=== PATIENT | male | born 1940 | race Caucasian/White ===

== ENCOUNTER 2020-02-10 14:37 | Emergency (ER) | payer MEDICARE, SELFPAY ==
[2020-02-10 14:49] VITALS: BP 161/78; PULSE 58; RESP 22; TEMP 36.8; O2SAT 98; BMI 32.2
[2020-02-10 15:34] VITALS: BP 145/82; PULSE 112; RESP 20; O2SAT 95
--- NOTE | 2020-02-10 15:45 | PC.NURSE ---
PT ALERT AND ORIENTED, SKIN PWD, RESPIRATIONS EVEN AND UNLABORED, LS SLIGHTLY DIMINISHED. PT STATES THIS MORNING EATING BREAKFAST, THEN STARTED TO HAVE TO CLEAR HIS THROAT, AND SPIT OUT NOTICED SOME BLOOD IN HIS SPUTUM, DID FEEL SOB AT THAT TIME BUT NOT CURRENTLY. THEN WAS EATING A CANDY BAR, FELT LIKE IT GOT STUCK IN HIS THROAT-DID GET IT UP AND SPITTED IT OUT, SINCE THEN FEELS LIKE HIS THROAT IS SLIGHT IRRITATED AND FEELS LIKE HIS VOICED IS MUFFLED, PT DID REPORT ABLE TO DRINK SOME WATER WITHOUT ANY DIFFICULTY. SPEAKING IN FULL SENTENCES SATING AT 95% ON ROOM AIR, NS ON THE MONITOR
--- NOTE | 2020-02-10 16:37 | CT_ITS ---
EXAMINATION: CT SOFT TISSUE NECK WITH CONTRAST CLINICAL INFORMATION: Neck swelling and multiple voice COMPARISON: None TECHNIQUE: Following the intravenous administration of 60 mL of Omnipaque 350 intravenous contrast, helical imaging was performed in the axial plane with generation of coronal and sagittal reformatted images. This CT examination was performed using dose optimization techniques as appropriate, variously including the following: *Automated exposure control *Adjustment of mA and/or kV according to patient size (this includes techniques or standardized protocols for targeted exams where dose is matched to indication/reason for exam; i.e. extremities or head) *Use of iterative reconstruction technique DLP: 557 FINDINGS: There is abnormal masslike thickening of the bilateral aryepiglottic folds measuring 3.2 x 1.4 x 3.1 cm (TR x CC x SI). Fat planes surrounding the hypopharynx are intact. Retropharyngeal intact. Preepiglottic fat planes are intact. The pyriform sinuses are partially effaced. No evidence of extension of the process beyond the pharyngeal mucosal space. Deep spaces of the neck symmetric. No cervical adenopathy. The carotid sheath vasculature opacify normally. The thyroid gland is normal. The superior mediastinum is unremarkable. Mastoid air cells are clear. Small mucous retention cyst present within the left maxillary sinus. The mastoid air cells and visualized portions of the paranasal sinuses are well-aerated. The temporomandibular joints are normal. No periapical disease is identified. The imaged portions of the brain parenchyma are unremarkable. There is a 4 mm (mean) diameter nodule within the left upper lobe. Bulky bridging anterior osteophytes present throughout the cervical spine. No fractures or subluxations. 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 Endoscopy / biopsy recommended. * No lymphadenopathy. * There is a 4 mm nodule within left upper lobe. Attention on follow-up.
--- NOTE | 2020-02-10 16:37 | ECG_ITS ---
Test Reason : DIFFICULTY BREATHING Blood Pressure : / mmHG Vent. Rate : 078 BPM Atrial Rate : 078 BPM P-R Int : 148 ms QRS Dur : 082 ms QT Int : 410 ms P-R-T Axes : 039 -06 046 degrees QTc Int : 467 ms Normal sinus rhythm Normal ECG No previous ECGs available Referred By: Eli Gomez Electronically Signed By:PABLO HOANG MD
--- NOTE | 2020-02-10 16:38 | XR_ITS ---
EXAMINATION: XR CHEST CLINICAL INFORMATION: Shortness of breath COMPARISON: None TECHNIQUE: 2 views of the chest were obtained. FINDINGS: Mild diffuse interstitial prominence which appears chronic. No edema, consolidation, or effusion. The lungs are slightly hyperinflated. Normal cardiomediastinal silhouette. IMPRESSION: No acute cardiopulmonary findings.
--- NOTE | 2020-02-10 16:40 | ED_ITS ---
HPI - URI/Sore Throat General Chief Complaint: Upper Respiratory Symptoms Stated Complaint: MULTIPLE COMPLAINTS Time Seen by Provider: 02/10/20 16:28 Source: patient Mode of arrival: ambulatory History of Present Illness HPI Narrative: 79-year-old male presenting to the ED with sudden onset throat fullness x this morning after eating full breakfast. Admits to coughing up a little dark blood. Reports daily clears throat, however today felt like throat was swollen/ something was stuck and could not clear throat. denies sore throat, fever, trauma, shortness of breath, difficulty breathing, inability to handle secretions. Reports has been tolerating p.o. at home without difficulty MD elicited complaint: cough and sore throat Onset (ago): hour(s) Consistency: constant Severity: moderate Related Data Allergies Allergy/AdvReac Type Severity Reaction Status Date / Time No Known Allergies Allergy Verified 02/10/20 14:48 Review of Systems Review of Systems: Constitutional: No Fever, No Chills ENT/Mouth: No Nasal Congestion, No Sinus Pain, + Hoarseness, No sore throat, No Rhinorrhea, + Swallowing Difficulty Eyes: No Eye Pain, No Swelling, No Redness Cardiovascular: No Chest Pain, No SOB, No Dyspnea on Exertion Respiratory: + Cough, No Sputum, No Wheezing, No SOB, +hemoptysis Gastrointestinal: No Nausea, No Vomiting, No Diarrhea Skin: No Skin Lesions, No rash Yes all other systems are reviewed and are negative [facility] Social History Social History Alcohol intake: current Alcohol intake frequency: a few times a week Alcohol type: beer Smoking Status: Never smoker Use of substances other than those prescribed or required for medical reasons: No Advance Directives: No Advance Directives Information Provided: Yes Physical Exam Vital Signs: Vital Signs: Vital Signs Temp Pulse Resp BP Pulse Ox 02/10/20 19:43 97.9 F 77 14 155/75 H 94 02/10/20 18:40 98.1 F 75 20 150/62 H 97 02/10/20 15:34 112 H 20 145/82 H 95 02/10/20 14:49 98.3 F 58 22 H 161/78 H 98 Body Mass Index 32.2 Const: General: cooperative and healthy appearing; No acute distress Orientation/consciousness: patient oriented x3 Limitations: no limitations HENMT: Head: Yes normal to inspection Ears: hearing grossly normal bilaterally General nose exam: Normal external nose present Face and sinus: Yes normal facial exam Mouth: Normal oral and palatal mucosa present, no drooling and muffled voice Throat: Yes posterior oropharynx normal, Yes tonsils normal and Yes uvula midline Eyes: General: appearance normal, both eyes and all related structures EOM: EOMs intact bilaterally Neck: Other: neck fullness appreciated Lymphatic: no lymphadenopathy noted Resp: Effort & Inspection: normal respiratory effort, no grunting, not labored, no nasal flaring and no stridor Auscultation: clear to auscultation bilaterally, no crackles, no rales, no rhonchi and no wheezes Cardio: Rate: regular rate Heart sounds: S1 normal heart sound present and S2 normal heart sound present GI: Inspection: Yes normal to inspection Palpation (GI): Soft to palpation Skin: Wounds: no wounds Neuro: General: patient oriented x3 Extrem: General: Yes normal to inspection Course Course Course Narrative: - no leukocytosis, labs otherwise unremarkable, CXR without acute findings -- CT showing heterogeneous mass involving the area glottic folds bilaterally concerning for neoplasm. >> Spoke to ENT doctor Robles at [facility], case discussed, patient can follow-up in their office [place]. Patient given printed report and disc of CT to bring to office lab and imaging results discussed with patient. Discussed possible malignancy , and need for urgent follow-up with ENT. Worrisome signs and symptoms and very strict return precautions including difficulty breathing, throat swelling, inability to eat or drink, drooling, fever, etc discussed with patient, he verbalized understanding of feel safe for discharge MDM - URI/Sore Throat MDM Narrative Medical decision making narrative: 79-year-old male presenting to the ED with sudden onset throat fullness x this morning after eating full breakfast. On exam VSS, nontoxic appearing, uvula midline +muffled voice, in no respiratory di stress, lungs CTA, no stridor. Concern for ?epiglottis/laryngeal infection vs mass vs bronchitis vs viral syndrome plan: EKG, labs, CXR, CT soft tissue neck Differential Diagnosis Differential diagnosis: Likely upper respiratory infection, viral infection, bronchitis and pharyngitis Lab Data Result diagrams: 02/10/20 17:23 02/10/20 17:23 Labs: Lab Results 10/10/20 10/10/20 10/10/20 Range/Units 17:23 17:23 17:23 WBC 5.6 (4.8-10.8) X10*3/uL RBC 4.11 L (4.60-5.80) X10*6/uL Hgb 13.6 L (14.0-18.0) g/dl Hct 41.5 L (42-52) % MCV 101.0 H (80-98) fL MCH 33.1 H (27.0-33.0) pg MCHC 32.8 (31.0-36.0) g/dl RDW 12.7 (11.0-16.0) % Plt Count 194 (160-400) X10*3/uL MPV 9.6 (9.4-12.4) fL Immature Gran % (Auto) 0.2 (0.0-0.4) % Neut % (Auto) 68.5 (45-73) % Lymph % (Auto) 20.7 (20-40) % [place] % (Auto) 9.0 (2-11) % Eos % (Auto) 1.2 (0-4) % Baso % (Auto) 0.4 (0-2) % Lymph # (Auto) 1.2 (1.2-4.9) X10*3/uL [place] # (Auto) 0.5 (0.1-1.2) X10*3/uL Eos # (Auto) 0.1 (0.0-0.4) X10*3/uL Baso # (Auto) 0.0 (0.0-0.2) X10*3/uL Abs Immat Gran (auto) 0.01 (0.00-0.03) X10*3/uL Absolute Neuts (auto) 3.9 (2.0-8.3) X10*3/uL Absolute Nucleated RBC 0.000 (0.0-0.012) X10*3/uL Nucleated RBC % (auto) 0.0 (0.0-0.2) /100WBC PT 11.5 (10.8-13.0) SEC INR 1.0 (0.9-1.1) APTT 33.7 (24.1-38.0) SEC Sodium 140 (135-145) mmol/L Potassium 3.8 (3.3-5.1) mmol/l Chloride 103 (96-108) mmol/L Carbon Dioxide 31 H (22-29) mmol/L Anion Gap 10 L (12-20) BUN 15 (9-16) mg/dL Creatinine 0.80 (0.5-1.4) mg/dL Estim Creat Clear Calc 81.4 Estimated GFR > 60 Random Glucose 105 (60-115) mg/dL Calcium 9.4 (8.4-10.2) mg/dL Total Bilirubin 1.1 H (0.0-1.0) mg/dL Direct Bilirubin 0.4 (0.0-0.5) mg/dL AST 15 (5-37) U/L ALT 8 (0-40) U/L Alkaline Phosphatase 70 (39-117) U/L Troponin I High Sens (<3.5-35.0) ng/L B-Natriuretic Peptide (<100) pg/mL Total Protein 6.7 (6.5-8.0) g/dL Albumin 4.1 (3.5-5.0) g/dL 02/10/20 Range/Units 17:23 WBC (4.8-10.8) X10*3/uL RBC (4.60-5.80) X10*6/uL Hgb (14.0-18.0) g/dl Hct (42-52) % MCV (80-98) fL MCH (27.0-33.0) pg MCHC (31.0-36.0) g/dl RDW (11.0-16.0) % Plt Count (160-400) X10*3/uL MPV (9.4-12.4) fL Immature Gran % (Auto) (0.0-0.4) % Neut % (Auto) (45-73) % Lymph % (Auto) (20-40) % [place] % (Auto) (2-11) % Eos % (Auto) (0-4) % Baso % (Auto) (0-2) % Lymph # (Auto) (1.2-4.9) X10*3/uL [place] # (Auto) (0.1-1.2) X10*3/uL Eos # (Auto) (0.0-0.4) X10*3/uL Baso # (Auto) (0.0-0.2) X10*3/uL Abs Immat Gran (auto) (0.00-0.03) X10*3/uL Absolute Neuts (auto) (2.0-8.3) X10*3/uL Absolute Nucleated RBC (0.0-0.012) X10*3/uL Nucleated RBC % (auto) (0.0-0.2) /100WBC PT (10.8-13.0) SEC INR (0.9-1.1) APTT (24.1-38.0) SEC Sodium (135-145) mmol/L Potassium (3.3-5.1) mmol/l Chloride (96-108) mmol/L Carbon Dioxide (22-29) mmol/L Anion Gap (12-20) BUN (9-16) mg/dL Creatinine (0.5-1.4) mg/dL Estim Creat Clear Calc Estimated GFR Random Glucose (60-115) mg/dL Calcium (8.4-10.2) mg/dL Total Bilirubin (0.0-1.0) mg/dL Direct Bilirubin (0.0-0.5) mg/dL AST (5-37) U/L ALT (0-40) U/L Alkaline Phosphatase (39-117) U/L Troponin I High Sens 6.1 (<3.5-35.0) ng/L B-Natriuretic Peptide 55 (<100) pg/mL Total Protein (6.5-8.0) g/dL Albumin (3.5-5.0) g/dL Discharge Plan Discharge Clinical Impression: Mass in neck Patient Disposition: Home, Self-Care Instructions: Soft Tissue Mass (ED) Additional Instructions: your CT scan showed a mass near the entrance of your larynx. It is concerning for possible cancer, further studies need to be done outpatient. You need to follow-up with [facility] ENT as soon as possible Call the number listed on her paperwork IF HE DEVELOP ANY DIFFICULTY BREATHING, FEEL LIKE THE SWELLING IS WORSENING, ARE UNABLE TO EAT OR DRINK/ HANDLING HER SECRETIONS RETURN TO THE ED IMMEDIATELY. YOU SHOULD GO TO [facility] IF THIS HAPPENS Referrals: Ayanna Jackson MD [Physician] - 2 days Discharge Date/Time: 02/10/20 20:44
[2020-02-10] MEDS: Albuterol/Iprat 2.5/0.5MG 3 ML AMPUL.NEB INHALE (16:57)
[2020-02-10 17:28] LABS: MANUAL DIFF FLAG NO
[2020-02-10 17:32] LABS: Basophils Percent Auto 0.4 % (0-2); Eosinophils Absolute Auto 0.1 X10*3/uL (0.0-0.4); Eosinophils Percent Auto 1.2 % (0-4); Hematocrit 41.5 % (42-52); Hemoglobin 13.6 g/dl (14.0-18.0); Imm Gran Abs Auto 0.01 X10*3/uL (0.00-0.03); Imm Gran Pct Auto 0.2 % (0.0-0.4); Lymphocytes Absolute Auto 1.2 X10*3/uL (1.2-4.9); Lymphocytes Percent Auto 20.7 % (20-40); Mean Corpuscular HGB Conc 32.8 g/dl (31.0-36.0); Mean Corpuscular Hemoglobin 33.1 pg (27.0-33.0); Mean Platelet Volume 9.6 fL (9.4-12.4); Monocytes Absolute Auto 0.5 X10*3/uL (0.1-1.2); Neutrophils Absolute Auto 3.9 X10*3/uL (2.0-8.3); Neutrophils Percent Auto 68.5 % (45-73); Platelet Count 194 X10*3/uL (160-400); Red Blood Count 4.11 X10*6/uL (4.60-5.80); Red Cell Distribution Width 12.7 % (11.0-16.0); White Blood Count 5.6 X10*3/uL (4.8-10.8)
[2020-02-10 17:38] LABS: Prothrombin Time 11.5 SEC (10.8-13.0)
[2020-02-10 17:40] LABS: Partial Thromboplastin Time 33.7 SEC (24.1-38.0)
[2020-02-10 17:58] LABS: Alanine Aminotransferase 8 U/L (0-40); Albumin Level 4.1 g/dL (3.5-5.0); Alkaline Phosphatase 70 U/L (39-117); Anion Gap 10 (12-20); Aspartate Amino Transferase 15 U/L (5-37); Bilirubin Direct 0.4 mg/dL (0.0-0.5); Bilirubin Total 1.1 mg/dL (0.0-1.0); Blood Urea Nitrogen 15 mg/dL (9-16); Calcium 9.4 mg/dL (8.4-10.2); Carbon Dioxide 31 mmol/L (22-29); Chloride 103 mmol/L (96-108); Creatinine Clr Calc Pharmacy 81.4; Estimated Glomerular Filt Rate > 60; Glucose Random 105 mg/dL (60-115); Potassium 3.8 mmol/l (3.3-5.1); Sodium 140 mmol/L (135-145); Total Protein 6.7 g/dL (6.5-8.0)
[2020-02-10 18:03] LABS: B Type Natriuretic Peptide 55 pg/mL (<100); Troponin-I High Sensitivity 6.1 ng/L (<3.5-35.0)
[2020-02-10] MEDS: iohexoL 350 MG/ML 100 ML INFUS..BTL IV (18:26)
[2020-02-10 18:40] VITALS: BP 150/62; PULSE 75; RESP 20; TEMP 36.7; O2SAT 97
--- NOTE | 2020-02-10 19:18 | PC.NURSE ---
Report received from Monique FLORES, pt alert, speaking in full/clear sentences. Ambulated to CT with steady gait. Awaiting imaging results at this time.
[2020-02-10 19:43] VITALS: BP 155/75; PULSE 77; RESP 14; TEMP 36.6; O2SAT 94
--- NOTE | 2020-02-10 20:15 | PC.NURSE ---
Pt aware of scan results, provider requesting pt be fed to make sure he could swallow. Plan for pt to f/u with EENT/ oncology through [facility].
--- NOTE | 2020-02-10 20:17 | PC.NURSE ---
pt able to swallow with no difficulty at thsi time
== END 2020-02-10 20:44 | disposition home or self-care (01) ==
PROVIDERS: Physician Assistant; Emergency Provider Emergency Medicine Emergency Medical Services
DX: R22.1 Localized swelling, mass and lump, neck (principal); M54.2 Cervicalgia; Z20.828 Contact with and (suspected) exposure to other viral communicable diseases
CPT/HCPCS: 36415; 70491; 71046; 80048; 80076; 83880; 84484; 85025; 85610; 85730; 93005; 99285

== ENCOUNTER 2023-04-20 14:05 | Outpatient (AMB) | payer MEDICARE, SELFPAY ==
[2023-04-20 14:44] VITALS: BP 120/50; PULSE 76; O2SAT 99; BMI 26.4
--- NOTE | 2023-04-20 14:44 | A.OFFVIS_ITS ---
Intake Vital Signs 04/20/23 14:44 Height 5 ft 8.5 in Weight 176 lb 0.37 oz BMI 26.4 BP 120/50 L Blood Pressure Location Lt brachial Position Sitting Pulse 76 Pulse Source Pulse Oximeter Pulse Oximetry (%) 99 Oxygen Delivery Method Room Air Intake Visit Reasons: ILD Intake Note: pt is here as a new patient, had hip operation in October, and some discomfort, very slight breathing issues. 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 This the gentleman, is well educated and keeps the note book with him, to take notes. When I asked him a for what reason is he referred to be seen by pulmonary service. He said he does not have any particular symptoms, except for mild occasional cough. He denies any wheezing attacks. He denies any on usual shortness of breath for his age. However since he has had right hip operation, about 6 months ago, his gait is somewhat slower than before. At home he can climb 1 flight of stairs, and he can walk around in the house without shortness of breath. He has had no wheezing attacks. He does not have history of smoking. He does not have history of exposure to any industrial dust sprays fumes. He had a CT scan of the chest in January of this year, at [facility]. I have reviewed the report and it shows, sub pleural reticulation in the lower parts of the lungs on both sides, consistent with mild interstitial lung disease. This gentleman has had feeling of something in his throat, has been evaluated by CT scan of the neck, and he has osteophytes, impinging on the esophagus. [facility] Medical History (Updated 04/20/23 @ 15:44 by Margy Napier MD) Osteophyte of cervical spine Interstitial lung disease Social History Alcohol intake: current Alcohol intake frequency: a few times a week Alcohol type: beer Patient Tobacco Use Status: Never used Tobacco Review of Systems Const All systems reviewed & are unremarkable except as noted in HPI and below Eyes Reports no additional complaints ENT Reports no additional complaints Card Reports irregular heart rhythm (History of skipped beats) Resp Reports as per HPI GI Reports no additional complaints Reports no additional complaints Musc Reports no additional complaints Skin/Breast Reports system reviewed and no additional complaints, except as documented Neuro Reports no additional complaints Psych Reports no additional complaints Physical Exam Vital Signs: Last Vital Signs Pulse 76 04/20/23 14:44 BP 120/50 L 04/20/23 14:44 Pulse Ox 99 04/20/23 14:44 Oxygen Delivery Method Room Air 04/20/23 14:44 BMI result Body Mass Index 26.4 Const General: healthy appearing, comfortable, no acute distress, alert and awake Orientation/consciousness: patient oriented x3 HEENT Head: Yes normal to inspection General nose exam: No nasal polyps present and No nasal discharge present Face and sinus: Yes sinuses nontender Mouth: oropharynx normal Throat: Yes posterior oropharynx normal Eyes General: appearance normal, both eyes and all related structures Neck Neck: Yes normal visual inspection, Yes no lymphadenopathy, Yes trachea midline and Yes no JVD Thyroid: Thyroid normal Chest Chest palpation & inspection: normal inspection of the chest, normal palpation of entire chest wall and no tenderness Resp Other: Percussion note is resonant. Breath sounds. Are normal and equal on both sides However the breath sounds are diminished over the left and right base. No definite crepitations but the breath sounds are somewhat harsh in corrected over the basilar areas. No wheezes are heard. Cardio Palpation: normal PMI Rate: regular rate Rhythm: regular rhythm Heart sounds: no gallops and no murmurs Peripheral pulses: Peripheral pulses 2+ throughout GI Palpation (GI): Soft to palpation, nontender, No hepatosplenomegaly present and no masses Auscultation: normal bowel sounds Back/Spine/Pelvis Thoracic/Lumbar Spine: thoracic and lumbar spine normal to inspection Skin General skin exam: no rashes or lesions noted Neuro General: patient oriented x3 and no focal motor deficits Cranial nerves: Yes CN's II-XII intact bilaterally Extrem General: Yes normal to inspection, Yes no clubbing, cyanosis or edema and Yes no calf tenderness Psych Appearance: grossly normal and well kempt Speech and movement: Normal speech and movement present Assessment & Plan Assessment & Plan (1) Interstitial lung disease: Comment: CT scan of the chest, , in January 2023 at [facility], showed sub pleural reticulation and increased interstitial markings in the basilar areas, c/w possible chronic pulmonary fibrosis, The patient is essentially asymptomatic at this time. Code(s): J84.9 - Interstitial pulmonary disease, unspecified Plan: Discussed with him in detail. Advise that he should have pulmonary function test to make sure that there is no significant impairment. Because he is relatively asymptomatic there is no need of any treatment at this time. (2) Osteophyte of cervical spine: Comment: Patient has had a feeling of lump in the throat. The soft tissue CT scan has shown indentation of the pharynx, caused by osteophytes, of C2-C6. Code(s): M25.78 - Osteophyte, vertebrae Plan: The above finding was discussed with the patient, he does not have any difficulty. In swallowing Orders: Orders PFT pulmonary function test Today J84.9 - Interstitial pulmonary disease, unspecified Coding Level of Care Code Tele New Pt Level 3 (73732) Diagnoses Interstitial lung disease J84.9 Osteophyte of cervical spine M25.78
== END 2023-04-20 15:16 | disposition home or self-care (01) ==
PROVIDERS: PCP Family Medicine; Referring Provider Family Medicine; Visit Provider Internal Medicine
DX: J84.9 Interstitial pulmonary disease, unspecified (principal); M25.78 Osteophyte, vertebrae
CPT/HCPCS: 99203

== ENCOUNTER → 2023-04-20 14:05 | Outpatient (BNVA) | payer MEDICARE, SELFPAY | PROVIDERS: PCP Family Medicine; Referring Provider Family Medicine; Visit Provider Internal Medicine | DX: J84.9 Interstitial pulmonary disease, unspecified (principal); M25.78 Osteophyte, vertebrae | CPT/HCPCS: 99202 ==

== ENCOUNTER 2023-07-15 13:50 | Outpatient (AMB) | payer MEDICARE, SELFPAY ==
[2023-07-15 14:02] VITALS: BP 104/52; PULSE 67; O2SAT 96; BMI 26.2
--- NOTE | 2023-07-15 14:02 | A.OFFVIS_ITS ---
Intake Vital Signs 07/15/23 14:02 Height 5 ft 8.5 in Weight 175 lb BMI 26.2 BP 104/52 L Blood Pressure Location Lt brachial Position Sitting Pulse 67 Pulse Source Pulse Oximeter Pulse Oximetry (%) 96 Oxygen Delivery Method Room Air Intake Visit Reasons: ILD Intake Note: pt is here for follow up and states he is feeling good. 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 He had a CT scan of the chest in January of this year, at [facility]. I have reviewed the report and it showed, sub pleural reticulation in the lower parts of the lungs on both sides, consistent with mild interstitial lung disease/fibrosis This gentleman has had feeling of something in his throat, has been evaluated by CT scan of the neck, and he has osteophytes, impinging on the esophagus. He denies any history of aspirations. He was supposed to have a pulmonary function test for future reference, but somehow or other he missed appointment in June of this. He is still telling me that he has had pulmonary function test in the past at [facility] but that was probably more than 4-5 years ago. Anyway he denies having any cough wheezing or shortness of breath. He also denies having any chest pain. His physical activity is normal he can walk outdoors on limited without getting short of breath. [facility] Medical History Osteophyte of cervical spine Interstitial lung disease Social History Alcohol intake: current Alcohol intake frequency: a few times a week Alcohol type: beer Patient Tobacco Use Status: Never used Tobacco Review of Systems Const All systems reviewed & are unremarkable except as noted in HPI and below Eyes Reports no additional complaints ENT Reports no additional complaints Card Reports irregular heart rhythm (History of skipped beats) Resp Reports as per HPI GI Reports no additional complaints Reports no additional complaints Musc Reports no additional complaints Skin/Breast Reports system reviewed and no additional complaints, except as documented Neuro Reports no additional complaints Psych Reports no additional complaints Physical Exam Vital Signs: Last Vital Signs Pulse 67 07/15/23 14:02 BP 104/52 L 07/15/23 14:02 Pulse Ox 96 07/15/23 14:02 Oxygen Delivery Method Room Air 07/15/23 14:02 BMI result Body Mass Index 26.2 Const General: healthy appearing, comfortable, no acute distress, alert and awake Orientation/consciousness: patient oriented x3 HEENT Head: Yes normal to inspection General nose exam: No nasal polyps present and No nasal discharge present Face and sinus: Yes sinuses nontender Mouth: oropharynx normal Throat: Yes posterior oropharynx normal Eyes General: appearance normal, both eyes and all related structures Neck Neck: Yes normal visual inspection, Yes no lymphadenopathy, Yes trachea midline and Yes no JVD Thyroid: Thyroid normal Chest Chest palpation & inspection: normal inspection of the chest, normal palpation of entire chest wall and no tenderness Resp Other: Percussion note is resonant. Breath sounds are normal and equal on both sides However the breath sounds are diminished over the left and right base. No definite crepitations . No wheezes are heard. Cardio Palpation: normal PMI Rate: regular rate Rhythm: regular rhythm Heart sounds: no gallops and no murmurs Peripheral pulses: Peripheral pulses 2+ throughout GI Palpation (GI): Soft to palpation, nontender, No hepatosplenomegaly present and no masses Auscultation: normal bowel sounds Back/Spine/Pelvis Thoracic/Lumbar Spine: thoracic and lumbar spine normal to inspection Skin General skin exam: no rashes or lesions noted Neuro General: patient oriented x3 and no focal motor deficits Cranial nerves: Yes CN's II-XII intact bilaterally Extrem General: Yes normal to inspection, Yes no clubbing, cyanosis or edema and Yes no calf tenderness Psych Appearance: grossly normal and well kempt Speech and movement: Normal speech and movement present Assessment & Plan Assessment & Plan (1) Interstitial lung disease: Comment: CT scan of the chest, , in January 2023 at [facility], showed sub pleural reticulation and increased interstitial markings in the basilar areas, c/w possible chronic pulmonary fibrosis, The patient is essentially asymptomatic . Code(s): J84.9 - Interstitial pulmonary disease, unspecified Plan: There was some confusion and he did not undergo pulmonary function test. Clinically I think his lung function is normal . He is asymptomatic. And I think he will be followed on a p.r.n. basis . I have discussed with him in detail and explained about this minimal interstitial lung disease. (2) Osteophyte of cervical spine: Comment: Patient has had a feeling of lump in the throat. The soft tissue CT scan has shown indentation of the pharynx, caused by osteophytes, of C2-C6. Code(s): M25.78 - Osteophyte, vertebrae Plan: No significant treatment needed Coding Level of Care Code Est Pt Level 3 (44815) Diagnoses Interstitial lung disease J84.9 Osteophyte of cervical spine M25.78
== END 2023-07-15 15:34 | disposition home or self-care (01) ==
PROVIDERS: PCP Family Medicine; Visit Provider Internal Medicine
DX: J84.9 Interstitial pulmonary disease, unspecified (principal); M25.78 Osteophyte, vertebrae
CPT/HCPCS: 99213

== ENCOUNTER → 2023-07-15 13:50 | Outpatient (BNVA) | payer MEDICARE, SELFPAY | PROVIDERS: PCP Family Medicine; Visit Provider Internal Medicine | DX: J84.9 Interstitial pulmonary disease, unspecified (principal); M25.78 Osteophyte, vertebrae | CPT/HCPCS: 99212 ==